=== PATIENT | female | born 2000 | race Caucasian/White ===

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

== ENCOUNTER 2018-12-04 09:28 | Emergency (ER) | payer MEDICAID ==
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
[2018-12-04 10:25] VITALS: PULSE 80; O2SAT 95
[2018-12-04 10:45] LABS: Appearance SLIGHTLY CLOUDY (CLEAR); Bacteria RARE /HPF (NEGATIVE); Bilirubin NEGATIVE (NEGATIVE); Blood LARGE Ery/ul (0-5); Epithelial Cells RARE /HPF (FEW); Glucose NEGATIVE (NEGATIVE); Ketones NEGATIVE (NEGATIVE); Leukocyte Esterase NEGATIVE (NEGATIVE); Mucus SLIGHT /HPF (NEGATIVE); Nitrite NEGATIVE (NEGATIVE); Protein,Urine Dip NEGATIVE (Negative); Specific Gravity 1.018 (1.005-1.025); Urobilinogen NEGATIVE mg/dL (0-1)
[2018-12-04 10:46] LABS: Amphetamine,Urine NEGATIVE (NEGATIVE); Barbiturate,Urine NEGATIVE (NEGATIVE); Benzodiazepine,Urine NEGATIVE (NEGATIVE); Cocaine,Urine NEGATIVE (NEGATIVE); Methadone,Urine NEGATIVE (NEGATIVE); Opiate,Urine NEGATIVE (NEGATIVE); PCP,Urine NEGATIVE (NEGATIVE); THC,Urine POSITIVE (NEGATIVE)
[2018-12-04 11:05] LABS: RBC >101 /HPF (0-2)
[2018-12-04 11:06] LABS: BASOPHIL % 0.3 % (0.0-0.4); Basophil (Absolute #) 0.03 (0-0.4); Eosinophil % 3.4 % (0.00-5.0); Eosinophil (Absolute #) 0.41 (0-0.5); Granulocyte Absolute (ANC) 8.64 (1.4-6.9); Granulocytes % 72.1 % (36.0-66.0); Hematocrit 39.9 % (35-47); Hemoglobin 13.4 gm/dl (12.0-16.0); Lymphocyte (Absolute #) 2.05 (1.0-4.6); Lymphocytes % 17.1 % (24.0-44.0); Mean Cell Volume 84.7 fl (78-100); Mean Corpuscular Hemoglobin 28.5 pg (26-32); Mean Corpuscular Hgb Concent. 33.6 g/dl (32-36); Mean Platelet Volume 10.5 fl (6-9.5); Monocyte (Absolute #) 0.85 (0.0-1.3); Monocytes % 7.1 % (0.0-12.0); Platelet Count 269 K/mm3 (150-450); Red Blood Count 4.71 M/mm3 (4.1-5.4); Red Cell Distribution Width 14.8 % (11.5-14.0)
[2018-12-04 11:17] LABS: ALBUMIN 4.3 g/dL (3.5-5.0); ALKALINE PHOSPHATASE 56 U/L (38-126); ANION GAP 15.6 MEQ/L (5-15); BLOOD UREA NITROGEN 7 mg/dL (7-17); CHLORIDE 107 mmol/L (98-107); Carbon Dioxide 23 mmol/L (22-30); Creatinine 1 0.48 mg/dL (0.52-1.04); Glucose 81 mg/dL (74-106); LIPASE 28 U/L (23-300); SGOT/AST 18 U/L (14-36); SGPT/ALT 16 U/L (0-35); SODIUM 141 mmol/L (137-145); Total Protein 7.5 g/dL (6.3-8.2)
[2018-12-04] MEDS ORDERED: Zofran 4 MG/2 ML VIAL IV ONE (11:25)
[2018-12-04] MEDS ORDERED: MORPHINE SULFATE 2 MG INJ IV ONE (11:25)
[2018-12-04] MEDS ORDERED: MORPHINE SULFATE 2 MG INJ ONE (11:33)
[2018-12-04] MEDS ORDERED: Zofran 4 MG/2 ML VIAL ONE (11:33)
[2018-12-04 11:53] VITALS: BP 125/74
== END 2018-12-04 12:04 | disposition home or self-care (01) ==
LOC: ED 09:28
DX: O20.9 Hemorrhage in early pregnancy, unspecified (principal); Z3A.22 22 weeks gestation of pregnancy
CPT/HCPCS: 36000; 36415; 80053; 80307; 81001; 83690; 84702; 85025; 96374; 96375; 99284; J2270; J2405

== ENCOUNTER 2019-11-23 00:57 | Emergency (ER) | payer MEDICAID ==
--- NOTE | 2019-11-23 01:23 | ERPHSYRPT ---
- History of Present Illness Time Seen by Provider: 11/23/19 01:18 Historian: patient Exam Limitations: no limitations Physician History: This is a 19-year-old white female who presents with persistent vaginal bleeding (4-5 pads a day for 6 days) since her surgery on October 27 at [facility] by Dr. Weathers. She was seen postoperatively by Dr. Jasiel cote 2 weeks after her procedure and there was no vaginal bleeding at that time. She was seen at [facility] in [facility] approximately 1 week ago with similar issues. They could not get a hold of the electrical high tension tester and patient was told to follow-up with the electrical high tension tester who operated on her. The procedure performed was described as "opening up her fallopian tubes". They were unable to be opened per her report. The surgery was performed laparoscopically and a catheter went through the cervix. Patient states she had a CAT scan performed which showed some fluid down in the pelvis. Patient complains of some suprapubic discomfort and lower back pain bilaterally. She states at times she feels dizzy. Activities at Onset: none Quality: aching Abdominal Pain Onset Location: suprapubic Pain Radiation: no radiation, back Severity of Pain-Max: moderate Severity of Pain-Current: moderate Modifying Factors: Improves With: nothing Previous symptoms: same symptoms as today, recently seen Allergies/Adverse Reactions: shellfish derived Allergy (Severe, Verified 11/23/19 01:28) Vomiting PT STATES SHE VOMITS BLOOD sertraline [From Zoloft] Allergy (Intermediate, Verified 11/23/19 01:28) SUICIDAL IDEATIONS amoxicillin Allergy (Unknown, Verified 11/23/19 01:28) Blisters Penicillins Allergy (Unknown, Verified 11/23/19 01:28) Blisters Home Medications: Doxycycline Hyclate 100 mg [Vibramycin 100 MG] 100 mg PO BID 11/23/19 [History] Lurasidone HCl [Latuda] 20 mg PO DAILY 11/23/19 [History] Hx Tetanus, Diphtheria Vaccination/Date Given: Yes Hx Influenza Vaccination/Date Given: No Hx Pneumococcal Vaccination/Date Given: No Travel Risk - International Travel Have you traveled outside of the country in past 3 weeks: No (N) If Yes, where;: N - Coronavirus Screening Are you exhibiting any of the following symptoms?: No Close contact with a COVID-19 positive Pt in past 14-21 Days: No - Review of Systems Constitutional: No Symptoms Eyes: No Symptoms Ears, Nose, & Throat: No Symptoms Respiratory: No Symptoms Cardiac: No Symptoms Abdominal/Gastrointestinal: Abdominal Pain Genitourinary Symptoms: Vaginal Bleeding Musculoskeletal: No Symptoms Skin: No Symptoms Neurological: No Symptoms Psychological: No Symptoms Endocrine: No Symptoms Hematologic/Lymphatic: No Symptoms Immunological/Allergic: No Symptoms All Other Systems: Reviewed and Negative - Past Medical History Pertinent Past Medical History: Yes Neurological History: No Pertinent History ENT History: No Pertinent History Cardiac History: No Pertinent History Respiratory History: Asthma Endocrine Medical History: No Pertinent History Musculoskeletal History: No Pertinent History GI Medical History: Other History: No Pertinent History Psycho-Social History: Depression Female Reproductive Disorders: No Pertinent History Other Medical History: gastroparesis - Past Surgical History Past Surgical History: No Neuro Surgical History: No Pertinent History Cardiac: No Pertinent History Respiratory: No Pertinent History Gastrointestinal: No Pertinent History Genitourinary: No Pertinent History Musculoskeletal: No Pertinent History Female Surgical History: No Pertinent History - Social History Smoking Status: Current every day smoker How long have you smoked: 6 months Exposure to second hand smoke: Yes Drug Use: none Patient Lives Alone: No - Nursing Vital Signs Nursing Vital Signs: Initial Vital Signs Temperature 98.5 F 11/23/19 01:16 Pulse Rate 113 H 11/23/19 01:16 Respiratory Rate 18 11/23/19 01:16 Blood Pressure 137/80 11/23/19 01:16 O2 Sat by Pulse Oximetry 97 11/23/19 01:16 Pain Scale Pain Intensity 7 - Physical Exam General Appearance: no apparent distress, alert, anxiety Eye Exam: PERRL/EOMI, eyes nml inspection Ears, Nose, Throat Exam: normal ENT inspection, moist mucous membranes Neck Exam: normal inspection, non-tender, supple, full range of motion Respiratory Exam: normal breath sounds, lungs clear, airway intact, No chest tenderness, No respiratory distress Cardiovascular Exam: tachycardia Gastrointestinal/Abdomen Exam: soft, normal bowel sounds, tenderness (Mild suprapubic tenderness) Rectal Exam: not done Back Exam: normal inspection, normal range of motion, No CVA tenderness, No vertebral tenderness Extremity Exam: normal inspection, normal range of motion, pelvis stable Neurologic Exam: alert, oriented x 3, cooperative, conveyor line bakery worker II-XII nml as tested, normal mood/affect, nml cerebellar function, nml station & gait, sensation nml Skin Exam: normal color, warm, dry Lymphatic Exam: No adenopathy SpO2 Interpretation: normal O2 Delivery: Room Air - Course Nursing assessment & vital signs reviewed: Yes Ordered Tests: Active Orders 24 hr Category Date Time Status IV Insertion STAT Care 11/23/19 01:25 Active ABDOMEN AND PELVIS W/0 CONTRAS [CT] Stat Exams 11/23/19 02:16 Taken CBC W DIFF Stat Lab 11/23/19 01:48 Completed CMP Stat Lab 11/23/19 01:48 Completed CULTURE,URINE Stat Lab 11/23/19 01:48 Received HCG QUALITATIVE,SERUM Stat Lab 11/23/19 01:48 Completed UA W/RFX UR CULTURE Stat Lab 11/23/19 01:48 Completed Medication Summary Discontinued Medications Generic Name Dose Route Start Last Admin Trade Name Freq PRN Reason Stop Dose Admin Sodium Chloride 1,000 mls @ 999 mls/hr 11/23/19 01:25 11/23/19 01:59 Sodium Chloride 0.9% 1000 Ml IV 11/23/19 02:25 999 mls/hr .Q1H1M STA Administration Sodium Chloride Confirm 11/23/19 01:54 Sodium Chloride 0.9% 1000 Ml Administered 11/23/19 01:55 Dose 1,000 mls @ ud .ROUTE .STK-MED ONE Morphine Sulfate 4 mg 11/23/19 01:52 11/23/19 02:00 Morphine Sulfate 4 Mg Inj IV 11/23/19 01:53 4 mg STAT ONE Administration Morphine Sulfate Confirm 11/23/19 01:54 Morphine Sulfate 4 Mg Inj Administered 11/23/19 01:55 Dose 4 mg .ROUTE .STK-MED ONE Ondansetron HCl 4 mg 11/23/19 01:25 11/23/19 02:00 Zofran 4 Mg/2 Ml Vial IV 11/23/19 01:26 4 mg STAT ONE Administration Ondansetron HCl Confirm 11/23/19 01:54 Zofran 4 Mg/2 Ml Vial Administered 11/23/19 01:55 Dose 4 mg .ROUTE .STK-MED ONE Lab/Rad Data: Laboratory Result Diagrams 11/23/19 01:48 11/23/19 01:48 Laboratory Results 11/23/19 11/23/19 11/23/19 Range/Units 01:48 01:48 01:48 WBC (4.0-10.5) K/mm3 RBC (4.1-5.4) M/mm3 Hgb (12.0-16.0) gm/dl Hct (35-47) % MCV (78-100) fl MCH (26-32) pg MCHC (32-36) g/dl RDW (11.5-14.0) % Plt Count (150-450) K/mm3 MPV (7.5-11.0) fl Gran % (36.0-66.0) % Eos # (Auto) (0-0.5) Absolute Lymphs (auto) (1.0-4.6) Absolute Monos (auto) (0.0-1.3) Lymphocytes % (24.0-44.0) % Monocytes % (0.0-12.0) % Eosinophils % (0.00-5.0) % Basophils % (0.0-0.4) % Absolute Granulocytes (1.4-6.9) Basophils # (0-0.4) Sodium 136 L (137-145) mmol/L Potassium 4.2 (3.5-5.1) mmol/L Chloride 103 (98-107) mmol/L Carbon Dioxide 24 (22-30) mmol/L Anion Gap 14.1 (5-15) MEQ/L BUN 9 (7-17) mg/dL Creatinine 0.60 (0.52-1.04) mg/dL Estimated GFR > 60.0 ML/MIN Glucose 102 (74-106) mg/dL Calcium 10.2 (8.4-10.2) mg/dL Total Bilirubin 0.50 (0.2-1.3) mg/dL AST 19 (14-36) U/L ALT 11 (0-35) U/L Alkaline Phosphatase 65 (38-126) U/L Serum Total Protein 8.4 H (6.3-8.2) g/dL Albumin 5.2 H (3.5-5.0) g/dL Serum , Qual NEGATIVE (Negative) Urine Color RED (YELLOW) Urine Appearance SLIGHTLY CLOUDY (CLEAR) Urine pH 7.0 (5-6) Ur Specific [place] 1.006 (1.005-1.025) Urine Protein 100 (Negative) Urine Ketones NEGATIVE (NEGATIVE) Urine Blood LARGE (0-5) John/ul Urine Nitrite NEGATIVE (NEGATIVE) Urine Bilirubin NEGATIVE (NEGATIVE) Urine Urobilinogen NEGATIVE (0-1) mg/dL Ur Leukocyte Esterase TRACE (NEGATIVE) Urine WBC (Auto) 0-2 (0-5) /HPF Urine RBC (Auto) >101 (0-2) /HPF U Epithel Cells (Auto) NONE (FEW) /HPF Urine Bacteria (Auto) NONE SEEN (NEGATIVE) /HPF Urine Culture Reflexed YES (NO) Urine Glucose NEGATIVE (NEGATIVE) mg/dL 11/23/19 Range/Units 01:48 WBC 10.4 (4.0-10.5) K/mm3 RBC 4.94 (4.1-5.4) M/mm3 Hgb 14.1 (12.0-16.0) gm/dl Hct 42.8 (35-47) % MCV 86.6 (78-100) fl MCH 28.5 (26-32) pg MCHC 32.9 (32-36) g/dl RDW 13.2 (11.5-14.0) % Plt Count 282 (150-450) K/mm3 MPV 9.9 (7.5-11.0) fl Gran % 73.1 H (36.0-66.0) % Eos # (Auto) 0.04 (0-0.5) Absolute Lymphs (auto) 2.25 (1.0-4.6) Absolute Monos (auto) 0.49 (0.0-1.3) Lymphocytes % 21.6 L (24.0-44.0) % Monocytes % 4.7 (0.0-12.0) % Eosinophils % 0.4 (0.00-5.0) % Basophils % 0.2 (0.0-0.4) % Absolute Granulocytes 7.64 H (1.4-6.9) Basophils # 0.02 (0-0.4) Sodium (137-145) mmol/L Potassium (3.5-5.1) mmol/L Chloride (98-107) mmol/L Carbon Dioxide (22-30) mmol/L Anion Gap (5-15) MEQ/L BUN (7-17) mg/dL Creatinine (0.52-1.04) mg/dL Estimated GFR ML/MIN Glucose (74-106) mg/dL Calcium (8.4-10.2) mg/dL Total Bilirubin (0.2-1.3) mg/dL AST (14-36) U/L ALT (0-35) U/L Alkaline Phosphatase (38-126) U/L Serum Total Protein (6.3-8.2) g/dL Albumin (3.5-5.0) g/dL Serum , Qual (Negative) Urine Color (YELLOW) Urine Appearance (CLEAR) Urine pH (5-6) Ur Specific [place] (1.005-1.025) Urine Protein (Negative) Urine Ketones (NEGATIVE) Urine Blood (0-5) John/ul Urine Nitrite (NEGATIVE) Urine Bilirubin (NEGATIVE) Urine Urobilinogen (0-1) mg/dL Ur Leukocyte Esterase (NEGATIVE) Urine WBC (Auto) (0-5) /HPF Urine RBC (Auto) (0-2) /HPF U Epithel Cells (Auto) (FEW) /HPF Urine Bacteria (Auto) (NEGATIVE) /HPF Urine Culture Reflexed (NO) Urine Glucose (NEGATIVE) mg/dL - Progress Progress: improved Progress Note: 11/23/19 03:05 CAT scan of the abdomen and pelvis reveals trace free fluid in the dependent pelvis cannot exclude ovarian cyst rupture. No other acute CAT scan pathology 11/23/19 03:05 Medical decision making: This patient has had vaginal bleeding 4-5 times a day for the last 5 to 6 days. She is postprocedural. She has been seen at [facility] emergency department as well as our emergency department. Her hemoglobin levels are essentially the same 1 week apart. She is hemodynamically stable. Her CAT scans have not changed in the last week showing only a trace amount of dependent pelvic fluid. We will make arrangements for this patient to be seen by electrical high tension tester Dr. Farias on an outpatient basis. Have given the patient's phone number to the beam house inspector Arely. We will also provide the patient with Dr. Worrell phone number. Counseled pt/family regarding: lab results, diagnosis, need for follow-up, rad results - Departure Departure Disposition: Home Clinical Impression: Vaginal bleeding Condition: Stable Critical Care Time: No Referrals: DONALD LLOYD MD [ACTIVE STAFF] - Additional Instructions: Drink plenty of fluids. If you do not hear from Dr. Farias's office by 670 this morning, you are to call [phone] extension [phone]. We will discuss with you and manage your vaginal bleeding issues and pain control issues. Use Tylenol for pain control until your evaluation by gynecology.
[2019-11-23] MEDS ORDERED: Sodium Chloride 0.9% 1000 ML 1,000 ML IV STA (01:25)
[2019-11-23] MEDS ORDERED: Zofran 4 MG/2 ML VIAL IV ONE (01:25)
[2019-11-23 01:52] LABS: Absolute Neutrophil Ct (ANC) 7.64 (1.4-6.9); BASOPHIL % 0.2 % (0.0-0.4); Basophil (Absolute #) 0.02 (0-0.4); Eosinophil % 0.4 % (0.00-5.0); Eosinophil (Absolute #) 0.04 (0-0.5); Hematocrit 42.8 % (35-47); Hemoglobin 14.1 gm/dl (12.0-16.0); Lymphocyte (Absolute #) 2.25 (1.0-4.6); Lymphocytes % 21.6 % (24.0-44.0); Mean Cell Volume 86.6 fl (78-100); Mean Corpuscular Hemoglobin 28.5 pg (26-32); Mean Corpuscular Hgb Concent. 32.9 g/dl (32-36); Mean Platelet Volume 9.9 fl (7.5-11.0); Monocyte (Absolute #) 0.49 (0.0-1.3); Monocytes % 4.7 % (0.0-12.0); Neutrophil % 73.1 % (36.0-66.0); Platelet Count 282 K/mm3 (150-450); Red Blood Count 4.94 M/mm3 (4.1-5.4); Red Cell Distribution Width 13.2 % (11.5-14.0); White Blood Count 10.4 K/mm3 (4.0-10.5)
[2019-11-23] MEDS ORDERED: MORPHINE SULFATE 4 MG INJ IV ONE (01:52)
[2019-11-23] MEDS ORDERED: Sodium Chloride 0.9% 1000 ML 1,000 ML ONE (01:54)
[2019-11-23] MEDS ORDERED: Zofran 4 MG/2 ML VIAL ONE (01:54)
[2019-11-23] MEDS ORDERED: MORPHINE SULFATE 4 MG INJ ONE (01:54)
[2019-11-23 02:02] LABS: ALBUMIN 5.2 g/dL (3.5-5.0); ALKALINE PHOSPHATASE 65 U/L (38-126); ANION GAP 14.1 MEQ/L (5-15); BLOOD UREA NITROGEN 9 mg/dL (7-17); CHLORIDE 103 mmol/L (98-107); Calcium 10.2 mg/dL (8.4-10.2); Carbon Dioxide 24 mmol/L (22-30); EST GLOMERULAR FILTRATION RATE > 60.0 ML/MIN; Glucose 102 mg/dL (74-106); Potassium 4.2 mmol/L (3.5-5.1); SGOT/AST 19 U/L (14-36); SGPT/ALT 11 U/L (0-35); SODIUM 136 mmol/L (137-145); Total Protein 8.4 g/dL (6.3-8.2)
[2019-11-23 02:03] LABS: Appearance SLIGHTLY CLOUDY (CLEAR); Bilirubin NEGATIVE (NEGATIVE); Blood LARGE Ery/ul (0-5); Glucose NEGATIVE (NEGATIVE); Ketones NEGATIVE (NEGATIVE); Leukocyte Esterase TRACE (NEGATIVE); Nitrite NEGATIVE (NEGATIVE); Protein,Urine Dip 100 (Negative); Specific Gravity 1.006 (1.005-1.025); Urobilinogen NEGATIVE mg/dL (0-1); WBC 0-2 /HPF (0-5)
[2019-11-23 02:04] LABS: Bacteria NONE SEEN /HPF (NEGATIVE); RBC >101 /HPF (0-2)
[2019-11-23 03:17] VITALS: BP 123/80; PULSE 94; O2SAT 100
--- NOTE | 2019-11-23 08:45 | XRAY ---
Indication: Vaginal bleeding. Status post gynecologic surgery October 28, 2019. Multiple contiguous axial images obtained through the abdomen and pelvis without contrast as ordered. Comparison: August 13, 2017. Lung bases are clear. Heart is not enlarged. Noncontrasted stomach and bowel loops appear nonobstructed. Normal appendix. Mild fecal debris predominantly in the ascending and transverse colon. Small cul-de-sac fluid. No free air. Remaining liver, gallbladder, pancreas, spleen, adrenal glands, kidneys, ureters, bladder, uterus, and aorta are unremarkable for noncontrast exam. Osseous structures intact. No ventral or inguinal hernias. Impression: 1. Cul-de-sac fluid presumed physiologic from rupture/leaking cyst. 2. Mild fecal stasis. 3. Remaining CT abdomen/pelvis without contrast exam is negative. Comment: Preliminary interpretation was made by [facility]. No critical discrepancy.
== END 2019-11-23 03:27 | disposition home or self-care (01) ==
LOC: ED 00:57
DX: N99.820 Postprocedural hemorrhage of a genitourinary system organ or structure following a genitourinary system procedure (principal); N93.9 Abnormal uterine and vaginal bleeding, unspecified
CPT/HCPCS: 36000; 36415; 74176; 80053; 81001; 81025; 85025; 87086; 96360; 96374; 96375; 99284; J2270; J2405

== ENCOUNTER 2019-11-26 17:19 | Emergency (ER) | payer MEDICAID ==
[2019-11-26 17:58] VITALS: BP 103/82; PULSE 98; O2SAT 99
[2019-11-26] MEDS ORDERED: Trandate 100 MG PO STA (18:07)
--- NOTE | 2019-11-26 18:08 | ERPHSYRPT ---
- History of Present Illness Time Seen by Provider: 11/26/19 17:50 Source: patient Exam Limitations: no limitations Patient Subjective Stated Complaint: pt here for vaginal bleeding, she was seen by Din[facility] and was given meds, but unable to fill them dhiraj to insurance not paying Triage Nursing Assessment: pt alert, walked in, face mask on, resp easy, abd soft, she states she is going thorugh 1-2 pads per hour, and is light headed at times Physician History: 19 years old female with a history of PID presented in the ER with chief complaint of excessive vaginal bleeding for the last 11 days. Patient has history of irregular cycles and has recently procedure done at [facility] and was referred to [facility] here Dr. Farias who has seen patient few days ago and has obtained labs which were done yesterday which are grossly unremarkable. Patient reports she continues to have bright to dark red blood and few clots for the last 11 days. She was prescribed TXA but could not get it from the pharmacy as Dr. Farias is not on the list for Medicaid patients. Patient denies any abdominal pain but has minimal discomfort at times in the pelvic area. Denies any nausea vomiting. Denies any dizziness or lightheade dness. No chest pain palpitations or shortness of breath reported. Timing/Duration: day(s) (11), gradual onset, worse Activites at Onset: rest Severity of Pain-Max: moderate Severity of Pain-Current: mild Prior abdominal problems: PID Sexual intercourse history: non-contributory Modifying Factors: Improves With: nothing Allergies/Adverse Reactions: shellfish derived Allergy (Severe, Verified 11/26/19 17:58) Vomiting PT STATES SHE VOMITS BLOOD sertraline [From Zoloft] Allergy (Intermediate, Verified 11/26/19 17:58) SUICIDAL IDEATIONS amoxicillin Allergy (Unknown, Verified 11/26/19 17:58) Blisters Penicillins Allergy (Unknown, Verified 11/26/19 17:58) Blisters Home Medications: Doxycycline Hyclate 100 mg [Vibramycin 100 MG] 100 mg PO BID 11/23/19 [History] Lurasidone HCl [Latuda] 20 mg PO DAILY 11/23/19 [History] Hx Tetanus, Diphtheria Vaccination/Date Given: Yes Hx Influenza Vaccination/Date Given: No Hx Pneumococcal Vaccination/Date Given: No Travel Risk - International Travel Have you traveled outside of the country in past 3 weeks: No - Coronavirus Screening Are you exhibiting any of the following symptoms?: No Close contact with a COVID-19 positive Pt in past 14-21 Days: No - Review of Systems Constitutional: No Symptoms Eyes: No Symptoms Ears, Nose, & Throat: No Symptoms Respiratory: No Symptoms Cardiac: No Symptoms Abdominal/Gastrointestinal: No Symptoms Genitourinary Symptoms: Vaginal Bleeding Musculoskeletal: No Symptoms Skin: No Symptoms Neurological: No Symptoms Psychological: No Symptoms Endocrine: No Symptoms Hematologic/Lymphatic: No Symptoms Immunological/Allergic: No Symptoms - Past Medical History Pertinent Past Medical History: Yes Neurological History: No Pertinent History ENT History: No Pertinent History Cardiac History: No Pertinent History Respiratory History: Asthma Endocrine Medical History: No Pertinent History Musculoskeletal History: No Pertinent History GI Medical History: Other History: No Pertinent History Psycho-Social History: Depression Female Reproductive Disorders: No Pertinent History Other Medical History: gastroparesis - Past Surgical History Past Surgical History: No Neuro Surgical History: No Pertinent History Cardiac: No Pertinent History Respiratory: No Pertinent History Gastrointestinal: No Pertinent History Genitourinary: No Pertinent History Musculoskeletal: No Pertinent History Female Surgical History: No Pertinent History Other Surgical History: laprscopy to clean out fallopian tubes - Social History Smoking Status: Current every day smoker How long have you smoked: 6 months Exposure to second hand smoke: Yes Drug Use: none Patient Lives Alone: No - Female History Hx Last Menstrual Period: now Hx Now: No - Nursing Vital Signs Nursing Vital Signs: Initial Vital Signs Temperature 97.3 F 11/26/19 17:51 Pulse Rate 98 H 11/26/19 17:51 Respiratory Rate 16 11/26/19 17:51 Blood Pressure 103/82 11/26/19 17:51 O2 Sat by Pulse Oximetry 99 11/26/19 17:51 Pain Scale Pain Intensity 5 - Physical Exam General Appearance: no apparent distress, alert Eye Exam: eyes nml inspection Ears, Nose, Throat Exam: normal ENT inspection, pharynx normal Neck Exam: normal inspection, supple, full range of motion Respiratory Exam: normal breath sounds, lungs clear Cardiovascular Exam: regular rate/rhythm, normal heart sounds Gastrointestinal/Abdomen Exam: soft, normal bowel sounds, No tenderness Pelvic Exam: not done Back Exam: normal inspection, normal range of motion Extremity Exam: normal inspection, normal range of motion Neurologic Exam: alert, oriented x 3, cooperative Skin Exam: normal color, warm SpO2 Interpretation: normal SpO2: 99 O2 Delivery: Room Air - Course Nursing assessment & vital signs reviewed: Yes - Progress Progress: unchanged Air Movement: good Progress Note: 11/26/19 18:19 19 years old is evaluated for abnormal vaginal bleeding. She has of work-up done yesterday with stable H&H. Negative test. Discussed with Dr. Farias, recommended prescription of tranexamic acid 650 mg 2 tablets 3 times a day for 5 days and outpatient follow-up. Patient has a stable vital. No signs of distress or hypotension. At this point do not think patient needs work-up again and is stable for discharge with outpatient follow-up. Blood Culture(s) Obtained: No Antibiotics given: No Discussed with Dr.: Other () Counseled pt/family regarding: diagnosis, need for follow-up - Departure Departure Disposition: Home Clinical Impression: Abnormal uterine bleeding Condition: Stable Critical Care Time: No Referrals: DOCTOR,NO FAMILY [Primary Care Provider] - JONATHAN FARIAS DO [ACTIVE STAFF] - Follow Up with PCP/3 days Additional Instructions: Drink plenty of fluids. Take tranexamic acid 650 mg 2 tablets 3 times a day for 5 days and follow-up with [facility] for reevaluation. Return to ER for worsening bleeding, feeling dizzy lightheaded, chest pain palpitations or shortness of br eath. Prescriptions: Tranexamic Acid [Lysteda] 1,300 mg PO TID 5 Days #30 tablet
[2019-11-26] MEDS ORDERED: TRANEXAMIC ACID 1000 MG/10 ML ONE (18:42)
== END 2019-11-26 19:14 | disposition home or self-care (01) ==
LOC: ED 17:19
DX: N93.8 Other specified abnormal uterine and vaginal bleeding (principal); Z98.890 Other specified postprocedural states
CPT/HCPCS: 99283

== ENCOUNTER 2020-03-04 22:22 | Emergency (ER) | payer MEDICAID ==
[2020-03-04 22:31] VITALS: O2SAT 100
--- NOTE | 2020-03-04 22:48 | ERPHSYRPT ---
- History of Present Illness Time Seen by Provider: 03/04/20 22:35 Source: patient Exam Limitations: no limitations Physician History: The patient is a 19-year-old female who presents with a chief complaint of a and chest pain. Onset reportedly was 2 weeks ago. She reportedly had a cough and some shortness of breath at that time as well as chest pain and was tested for COVID-19 and was negative. Since that time she is endorsed having intermittent fevers general malaise and fatigue. She has nausea, vomiting, changes in her taste and sense of smell, diarrhea, history of PE or DVT, estrogen use, recent surgery or immobilization. She decided to come to the emergency department tonight when her "fever" was noted to be 101 Fahrenheit for which she took Tylenol an hour prior to arrival. Timing/Duration: week(s) (2) Associated Symptoms: shortness of breath, cough, chills, chest pain, fever, No nausea, No vomiting Allergies/Adverse Reactions: shellfish derived Allergy (Severe, Verified 03/04/20 22:33) Vomiting PT STATES SHE VOMITS BLOOD sertraline [From Zoloft] Allergy (Intermediate, Verified 03/04/20 22:33) Rash SUICIDAL IDEATIONS amoxicillin Allergy (Unknown, Verified 03/04/20 22:33) Blisters Penicillins Allergy (Unknown, Verified 03/04/20 22:33) Blisters Home Medications: Lurasidone HCl [Latuda] 20 mg PO DAILY 11/23/19 [History] Albuterol 17 gm IH Q4-6HPRN PRN 03/04/20 [History] Hx Tetanus, Diphtheria Vaccination/Date Given: Yes Hx Influenza Vaccination/Date Given: No Hx Pneumococcal Vaccination/Date Given: No - Review of Systems Constitutional: Fever, Chills, Fatigue Eyes: No Symptoms Ears, Nose, & Throat: No Symptoms Respiratory: Cough, Dyspnea, No Stridor, No Wheezing Cardiac: Chest Pain, Orthopnea, No Edema, No Palpitations, No Syncope Abdominal/Gastrointestinal: No Abdominal Pain, No Nausea, No Vomiting Musculoskeletal: No Symptoms, Other (No asymmetric lower extremity calf tenderness or erythema to suggest DVT) Skin: No Symptoms Neurological: No Symptoms Psychological: No Symptoms All Other Systems: Reviewed and Negative - Past Medical History Pertinent Past Medical History: Yes Neurological History: No Pertinent History ENT History: No Pertinent History Cardiac History: No Pertinent History Respiratory History: Asthma Endocrine Medical History: No Pertinent History Musculoskeletal History: No Pertinent History GI Medical History: Other History: No Pertinent History Psycho-Social History: Depression Female Reproductive Disorders: No Pertinent History Other Medical History: gastroparesis - Past Surgical History Past Surgical History: No Neuro Surgical History: No Pertinent History Cardiac: No Pertinent History Respiratory: No Pertinent History Gastrointestinal: No Pertinent History Genitourinary: No Pertinent History Musculoskeletal: No Pertinent History Female Surgical History: No Pertinent History Other Surgical History: laprscopy to clean out fallopian tubes - Social History Smoking Status: Current every day smoker How long have you smoked: 6 months Exposure to second hand smoke: Yes Drug Use: marijuana Patient Lives Alone: No - Nursing Vital Signs Nursing Vital Signs: Initial Vital Signs Temperature 99.5 F 03/04/20 22:29 Pulse Rate 86 03/04/20 22:29 Respiratory Rate 18 03/04/20 22:29 Blood Pressure 137/85 03/04/20 22:29 O2 Sat by Pulse Oximetry 100 03/04/20 22:29 Pain Scale Pain Intensity 5 - Physical Exam General Appearance: no apparent distress, alert Neck Exam: normal inspection Respiratory Exam: normal breath sounds, lungs clear, airway intact, No chest tenderness, No respiratory distress Cardiovascular Exam: regular rate/rhythm, normal heart sounds, normal peripheral pulses, capillary refill <2 sec, No murmur, No friction rub, No gallop, No tachycardia, No edema Gastrointestinal/Abdomen Exam: soft Pelvic Exam: not done Rectal Exam: deferred Back Exam: normal inspection Extremity Exam: normal inspection Neurologic Exam: alert, oriented x 3, cooperative Skin Exam: normal color, warm, dry, rash, No petechiae, No jaundice, No cyanosis, No jaundice SpO2 Interpretation: normal SpO2: 100 O2 Delivery: Room Air - Course Nursing assessment & vital signs reviewed: Yes EKG Interpreted by Me: RATE, Sinus Tach, NORMAL AXIS, NORMAL INTERVALS, NORMAL QRS, NORMAL ST-T, Non-specific ST Changes - Radiology Exams Chest X-ray Interpretation: Interpreted by me, Reviewed by me, Negative (No acute cardiopulmonary process) Ordered Tests: Active Orders 24 hr Category Date Time Status EKG-ER Only STAT Care 03/04/20 22:43 Completed CHEST 2 VIEWS (PA AND LAT) Stat Exams 03/04/20 22:42 Taken - Progress Progress: unchanged Progress Note: 03/04/20 22:50 Nontoxic appearance. Afebrile the patient appears to be well-hydrated. I currently have a low suspicion for PE, aortic dissection, ACS or bacteremia at this time. The patient reportedly is already tested negative for COVID-19. Respiratory distress and her lung sounds are clear bilateral. I will obtain a chest x-ray to eval for evidence of pneumonia, pneumothorax or pleural effusion. EKG was also obtained showing no evidence of STEMI and otherwise with no obvious myocardial ischemia or injury pattern. Update for chest x-ray looks rel atively benign she will be discharged home to take Tylenol as well as ibuprofen as needed for symptomatic relief and she can follow-up with her primary care provider for further evaluation. Counseled pt/family regarding: diagnosis, need for follow-up, rad results - Departure Departure Disposition: Home Clinical Impression: Acute nonspecific chest pain with low risk of coronary artery disease, Fever, Tobacco abuse, Vaping nicotine dependence, non-tobacco product Condition: Stable Critical Care Time: No Referrals: BEBE CALVIN [Primary Care Provider] - Instructions: Chest Pain (DC), Fever, Adult (DC) Additional Instructions: Please take Tylenol and/or ibuprofen for any ongoing fevers aches or pains. You can purchase these medications [id number]. Please take these medications as instructed on the medication bottles.
[2020-03-04 23:20] VITALS: BP 132/81; PULSE 90
--- NOTE | 2020-03-05 08:48 | XRAY ---
Indication: Chest pain and short of breath. Comparison: August 13, 2017. PA/lateral chest again demonstrates normal heart, lungs, and bony thorax.
== END 2020-03-04 23:24 | disposition home or self-care (01) ==
LOC: ED 22:22
DX: R07.9 Chest pain, unspecified (principal); R50.9 Fever, unspecified; U07.0 Vaping-related disorder; F17.290 Nicotine dependence, other tobacco product, uncomplicated
CPT/HCPCS: 71046; 93005; 99284

== ENCOUNTER 2020-03-27 17:38 | Emergency (ER) | payer MEDICAID ==
--- NOTE | 2020-03-27 17:42 | ERPHSYRPT ---
- History of Present Illness Source: patient Exam Limitations: no limitations Timing/Duration: day(s) (A few days) Severity: mild Associated Symptoms: shortness of breath, cough, chest pain, No nausea, No vomiting, No abdominal pain, No chills Hx Tetanus, Diphtheria Vaccination/Date Given: Yes Hx Influenza Vaccination/Date Given: No Hx Pneumococcal Vaccination/Date Given: No <SONYA IBARRA - Last Filed: 03/27/20 18:58> <BELA RÍOS - Last Filed: 03/27/20 19:57> - History of Present Illness Time Seen by Provider: 03/27/20 17:42 Physician History: This is a 19-year-old white female who was diagnosed with COVID-19 positive test on 03/13/2020. Since that time, the patient has been on a Z-Maximilian. Completed her Z-Maximilian yesterday. She has been on steroids. Despite the steroids her symptoms have not significantly improved. Patient specifically stated that she has bilat eral lower lung opacities on a chest x-ray. Patient states that she continues to have shortness of breath and feels as though she is gasping for air. She also has pain in her ribs on the backside and chest with deep inspiration. Patient states that she is not had any fevers. She has no nausea vomiting or diarrhea. She continues to have a mild cough. (SONYA IBARRA) Allergies/Adverse Reactions: shellfish derived Allergy (Severe, Verified 03/27/20 17:45) Vomiting PT STATES SHE VOMITS BLOOD sertraline [From Zoloft] Allergy (Intermediate, Verified 03/27/20 17:45) Rash SUICIDAL IDEATIONS amoxicillin Allergy (Unknown, Verified 03/27/20 17:45) Blisters Penicillins Allergy (Unknown, Verified 03/27/20 17:45) Blisters Home Medications: Lurasidone HCl [Latuda] 20 mg PO DAILY PRN 11/23/19 [History] Albuterol 17 gm IH Q4-6HPRN PRN 03/04/20 [History] Travel Risk - International Travel Have you traveled outside of the country in past 3 weeks: No - Coronavirus Screening Are you exhibiting any of the following symptoms?: Yes Symptoms: Cough: New Onset, Shortness of Breath Close contact with a COVID-19 positive Pt in past 14-21 Days: Yes <MARLIN IBARRAMUNDO Amada - Last Filed: 03/27/20 18:58> - Review of Systems Constitutional: No Symptoms Eyes: No Symptoms Ears, Nose, & Throat: No Symptoms Respiratory: Cough, Dyspnea Cardiac: Chest Pain Abdominal/Gastrointestinal: No Symptoms Genitourinary Symptoms: No Symptoms Musculoskeletal: No Symptoms Skin: No Symptoms Neurological: No Symptoms Psychological: No Symptoms Endocrine: No Symptoms Hematologic/Lymphatic: No Symptoms Immunological/Allergic: No Symptoms All Other Systems: Reviewed and Negative <MARLIN IBARRAMUNDO Amada - Last Filed: 03/27/20 18:58> - Past Medical History Pertinent Past Medical History: Yes Neurological History: No Pertinent History ENT History: No Pertinent History Cardiac History: No Pertinent History Respiratory History: Asthma Endocrine Medical History: No Pertinent History Musculoskeletal History: No Pertinent History GI Medical History: Other History: No Pertinent History Psycho-Social History: Depression Female Reproductive Disorders: No Pertinent History Other Medical History: gastroparesis - Past Surgical History Past Surgical History: No Neuro Surgical History: No Pertinent History Cardiac: No Pertinent History Respiratory: No Pertinent History Gastrointestinal: No Pertinent History Genitourinary: No Pertinent History Musculoskeletal: No Pertinent History Female Surgical History: No Pertinent History Other Surgical History: laprscopy to clean out fallopian tubes - Social History Smoking Status: Current every day smoker How long have you smoked: 6 months Exposure to second hand smoke: Yes Drug Use: marijuana Patient Lives Alone: No <MARLIN IBARRAMUNDO Amada - Last Filed: 03/27/20 18:58> - Physical Exam General Appearance: no apparent distress, alert, anxiety Eye Exam: PERRL/EOMI, eyes nml inspection Ears, Nose, Throat Exam: normal ENT inspection, moist mucous membranes Neck Exam: normal inspection, non-tender, supple, full range of motion Respiratory Exam: normal breath sounds, chest tenderness (With inspiration), lungs clear, airway intact, No respiratory distress Cardiovascular Exam: tachycardia Gastrointestinal/Abdomen Exam: soft, normal bowel sounds, No tenderness Pelvic Exam: not done Rectal Exam: not done Back Exam: normal inspection, normal range of motion, No CVA tenderness, No vertebral tenderness Extremity Exam: normal inspection, normal range of motion, pelvis stable Neurologic Exam: alert, oriented x 3, cooperative, scoop filler II-XII nml as tested Skin Exam: normal color, warm, dry Lymphatic Exam: No adenopathy SpO2 Interpretation: normal O2 Delivery: Room Air <SONYA IBARRA - Last Filed: 03/27/20 18:58> - Nursing Vital Signs Nursing Vital Signs: Initial Vital Signs Pulse Rate 106 H 03/27/20 17:47 Respiratory Rate 18 03/27/20 17:47 Blood Pressure 141/87 03/27/20 17:47 O2 Sat by Pulse Oximetry 99 03/27/20 17:47 Pain Scale Pain Intensity 5 - Course Nursing assessment & vital signs reviewed: Yes EKG Interpreted by Me: RATE (87), Sinus Rhythm, NORMAL AXIS, NORMAL INTERVALS, NORMAL QRS, NORMAL ST-T, Other (Comparison EKG is on 03/04/2020. Today's EKG there is resolution of the sinus tachycardia. The border T abnormalities ant erior leads is persistent. There are no acute ischemic changes on either EKG.) <SONYA IBARRA - Last Filed: 03/27/20 18:58> - Radiology Exams Chest X-ray Interpretation: Interpreted by me (Lungs are clear. Heart bony thorax are within normal limits. The x-ray shows what appears to be foreign body in her airway this is actually a cross on her necklace.) <BELA RÍOS - Last Filed: 03/27/20 19:57> Ordered Tests: Active Orders 24 hr Category Date Time Status Medication Aid STAT Care 03/27/20 18:14 Active EKG-ER Only STAT Care 03/27/20 18:13 Active IV Insertion STAT Care 03/27/20 18:13 Active Isolation, Initiate & Maintain STAT Care 03/27/20 18:13 Active Pulse Oximetry (ED) STAT Care 03/27/20 18:13 Active CHEST 1 VIEW (PORTABLE) Stat Exams 03/27/20 18:14 Taken BLOOD CULTURE Stat Lab 03/27/20 18:38 Received CBC W DIFF Stat Lab 03/27/20 18:38 Completed CMP Stat Lab 03/27/20 18:38 Completed D-DIMER QUANTITATIVE Stat Lab 03/27/20 18:38 Received Ferritin Stat Lab 03/27/20 18:38 Completed HCG,QUALITATIVE URINE Stat Lab 03/27/20 18:21 Completed INFLUENZA A+B SAM Stat Lab 03/27/20 18:37 Completed LDH-LACTATE DEHYDROGENASE Stat Lab 03/27/20 18:38 Completed Lactic Acid Stat Lab 03/27/20 18:13 Completed [place] Screen Stat Lab 03/27/20 18:38 Received TROPONIN Q3H Lab 03/27/20 18:38 Completed TROPONIN Q3H Lab 03/27/20 21:15 Ordered TROPONIN Q3H Lab 03/28/20 00:15 Ordered TROPONIN Q3H Lab 03/28/20 03:15 Ordered TROPONIN Q3H Lab 03/28/20 06:15 Ordered Medication Summary Discontinued Medications Generic Name Dose Route Start Last Admin Trade Name Freq PRN Reason Stop Dose Admin Dexamethasone Sodium Phosphate 8 mg 03/27/20 18:15 03/27/20 18:28 Decadron 4 Mg Inj IV 03/27/20 18:16 8 mg STAT ONE Administration Dexamethasone Sodium Phosphate Confirm 03/27/20 18:27 Decadron 4 Mg Inj Administered 03/27/20 18:28 Dose 8 mg .ROUTE .[employer] ONE Lab/Rad Data: Laboratory Result Diagrams 03/27/20 18:38 03/27/20 18:38 Laboratory Results 03/27/20 03/27/20 03/27/20 Range/Units 18:38 18:38 18:38 WBC (4.0-10.5) K/mm3 RBC (4.1-5.4) M/mm3 Hgb (12.0-16.0) gm/dl Hct (35-47) % MCV (78-100) fl MCH (26-32) pg MCHC (32-36) g/dl RDW (11.5-14.0) % Plt Count (150-450) K/mm3 MPV (7.5-11.0) fl Gran % (36.0-66.0) % Eos # (Auto) (0-0.5) Absolute Lymphs (auto) (1.0-4.6) Absolute Monos (auto) (0.0-1.3) Lymphocytes % (24.0-44.0) % Monocytes % (0.0-12.0) % Eosinophils % (0.00-5.0) % Basophils % (0.0-0.4) % Absolute Granulocytes (1.4-6.9) Basophils # (0-0.4) Sodium 136 L (137-145) mmol/L Potassium 3.7 (3.5-5.1) mmol/L Chloride 103 (98-107) mmol/L Carbon Dioxide 27 (22-30) mmol/L Anion Gap 10.5 (5-15) MEQ/L BUN 10 (7-17) mg/dL Creatinine 0.54 (0.52-1.04) mg/dL Estimated GFR > 60.0 ML/MIN Glucose 97 (74-106) mg/dL Lactic Acid (0.4-2.0) Calcium 9.8 (8.4-10.2) mg/dL Ferritin 8.21 (6.24-137) ng/mL Total Bilirubin 0.40 (0.2-1.3) mg/dL AST 23 (14-36) U/L ALT 15 (0-35) U/L Alkaline Phosphatase 50 (38-126) U/L Lactate Dehydrogenase 138 (120-246) U/L Troponin I < 0.012 (0.000-0.034) ng/mL Serum Total Protein 7.9 (6.3-8.2) g/dL Albumin 4.7 (3.5-5.0) g/dL Urine HCG, Qual (Negative) Influenza Type A Ag (NEGATIVE) Influenza Type B Ag (NEGATIVE) Group A Strep Antibody (NEGATIVE) 03/27/20 03/27/20 03/27/20 Range/Units 18:38 18:37 18:37 WBC 10.5 (4.0-10.5) K/mm3 RBC 4.68 (4.1-5.4) M/mm3 Hgb 12.5 (12.0-16.0) gm/dl Hct 38.7 (35-47) % MCV 82.7 (78-100) fl MCH 26.7 (26-32) pg MCHC 32.3 (32-36) g/dl RDW 14.2 H (11.5-14.0) % Plt Count 278 (150-450) K/mm3 MPV 10.8 (7.5-11.0) fl Gran % 74.3 H (36.0-66.0) % Eos # (Auto) 0.07 (0-0.5) Absolute Lymphs (auto) 2.04 (1.0-4.6) Absolute Monos (auto) 0.56 (0.0-1.3) Lymphocytes % 19.5 L (24.0-44.0) % Monocytes % 5.3 (0.0-12.0) % Eosinophils % 0.7 (0.00-5.0) % Basophils % 0.2 (0.0-0.4) % Absolute Granulocytes 7.79 H (1.4-6.9) Basophils # 0.02 (0-0.4) Sodium (137-145) mmol/L Potassium (3.5-5.1) mmol/L Chloride (98-107) mmol/L Carbon Dioxide (22-30) mmol/L Anion Gap (5-15) MEQ/L BUN (7-17) mg/dL Creatinine (0.52-1.04) mg/dL Estimated GFR ML/MIN Glucose (74-106) mg/dL Lactic Acid (0.4-2.0) Calcium (8.4-10.2) mg/dL Ferritin (6.24-137) ng/mL Total Bilirubin (0.2-1.3) mg/dL AST (14-36) U/L ALT (0-35) U/L Alkaline Phosphatase (38-126) U/L Lactate Dehydrogenase (120-246) U/L Troponin I (0.000-0.034) ng/mL Serum Total Protein (6.3-8.2) g/dL Albumin (3.5-5.0) g/dL Urine HCG, Qual (Negative) Influenza Type A Ag NEGATIVE (NEGATIVE) Influenza Type B Ag NEGATIVE (NEGATIVE) Group A Strep Antibody NOT DETECTED (NEGATIVE) 03/27/20 03/27/20 Range/Units 18:21 18:13 WBC (4.0-10.5) K/mm3 RBC (4.1-5.4) M/mm3 Hgb (12.0-16.0) gm/dl Hct (35-47) % MCV (78-100) fl MCH (26-32) pg MCHC (32-36) g/dl RDW (11.5-14.0) % Plt Count (150-450) K/mm3 MPV (7.5-11.0) fl Gran % (36.0-66.0) % Eos # (Auto) (0-0.5) Absolute Lymphs (auto) (1.0-4.6) Absolute Monos (auto) (0.0-1.3) Lymphocytes % (24.0-44.0) % Monocytes % (0.0-12.0) % Eosinophils % (0.00-5.0) % Basophils % (0.0-0.4) % Absolute Granulocytes (1.4-6.9) Basophils # (0-0.4) Sodium (137-145) mmol/L Potassium (3.5-5.1) mmol/L Chloride (98-107) mmol/L Carbon Dioxide (22-30) mmol/L Anion Gap (5-15) MEQ/L BUN (7-17) mg/dL Creatinine (0.52-1.04) mg/dL Estimated GFR ML/MIN Glucose (74-106) mg/dL Lactic Acid 1.9 (0.4-2.0) Calcium (8.4-10.2) mg/dL Ferritin (6.24-137) ng/mL Total Bilirubin (0.2-1.3) mg/dL AST (14-36) U/L ALT (0-35) U/L Alkaline Phosphatase (38-126) U/L Lactate Dehydrogenase (120-246) U/L Troponin I (0.000-0.034) ng/mL Serum Total Protein (6.3-8.2) g/dL Albumin (3.5-5.0) g/dL Urine HCG, Qual NEGATIVE (Negative) Influenza Type A Ag (NEGATIVE) Influenza Type B Ag (NEGATIVE) Group A Strep Antibody (NEGATIVE) - Progress Progress: improved, pain not gone completely Counseled pt/family regarding: lab results, diagnosis, need for follow-up, rad results <SONYA IBARRA - Last Filed: 03/27/20 18:58> <BELA RÍOS - Last Filed: 03/27/20 19:57> - Progress Progress Note: 03/27/20 18:59 I am signing out at shift change to Dr. Bela Ríos. I have reviewed the patient history, condition and pending studies to be followed up on. He will make the patient's final disposition. (SONYA IBARRA) Patient endorsed to Dr. Ríos at approximately 7 PM. Patient reassessed. Labs are essentially nonremarkable for the purposes of this emergency room visit. Chest x-ray is negative. Patient ambulated throughout our ED. Her vitals remained normal. O2 saturation with exertion remained in the high 90s. Patient states she is ready for discharge. No indication for further work-up at this time will discharge home. Patient agrees to follow-up with her primary care doctor within 48 hours. 03/27/20 19:56 (BELA RÍOS) - Departure Departure Disposition: Home Critical Care Time: No <SONYA IBARRA - Last Filed: 03/27/20 18:58> <BELA RÍOS - Last Filed: 03/27/20 19:57> - Departure Clinical Impression: Shortness of breath, Cough Condition: Stable Referrals: BEBE CALVIN [Primary Care Provider] -
[2020-03-27] MEDS ORDERED: Decadron 4 MG INJ IV ONE (18:15)
[2020-03-27] MEDS ORDERED: Decadron 4 MG INJ ONE (18:27)
[2020-03-27 18:44] LABS: Absolute Neutrophil Ct (ANC) 7.79 (1.4-6.9); BASOPHIL % 0.2 % (0.0-0.4); Basophil (Absolute #) 0.02 (0-0.4); Eosinophil % 0.7 % (0.00-5.0); Eosinophil (Absolute #) 0.07 (0-0.5); Hematocrit 38.7 % (35-47); Hemoglobin 12.5 gm/dl (12.0-16.0); Lymphocyte (Absolute #) 2.04 (1.0-4.6); Lymphocytes % 19.5 % (24.0-44.0); Mean Cell Volume 82.7 fl (78-100); Mean Corpuscular Hemoglobin 26.7 pg (26-32); Mean Corpuscular Hgb Concent. 32.3 g/dl (32-36); Mean Platelet Volume 10.8 fl (7.5-11.0); Monocyte (Absolute #) 0.56 (0.0-1.3); Monocytes % 5.3 % (0.0-12.0); Neutrophil % 74.3 % (36.0-66.0); Platelet Count 278 K/mm3 (150-450); Red Blood Count 4.68 M/mm3 (4.1-5.4); Red Cell Distribution Width 14.2 % (11.5-14.0); White Blood Count 10.5 K/mm3 (4.0-10.5)
[2020-03-27 19:00] LABS: ALBUMIN 4.7 g/dL (3.5-5.0); ALKALINE PHOSPHATASE 50 U/L (38-126); ANION GAP 10.5 MEQ/L (5-15); BLOOD UREA NITROGEN 10 mg/dL (7-17); CHLORIDE 103 mmol/L (98-107); Calcium 9.8 mg/dL (8.4-10.2); Carbon Dioxide 27 mmol/L (22-30); Creatinine 1 0.54 mg/dL (0.52-1.04); EST GLOMERULAR FILTRATION RATE > 60.0 ML/MIN; Glucose 97 mg/dL (74-106); LDH-LACTATE DEHYDROGENASE 138 U/L (120-246); Potassium 3.7 mmol/L (3.5-5.1); SGOT/AST 23 U/L (14-36); SGPT/ALT 15 U/L (0-35); SODIUM 136 mmol/L (137-145); Total Protein 7.9 g/dL (6.3-8.2)
[2020-03-27 19:14] LABS: INFLUENZA A NEGATIVE (NEGATIVE); INFLUENZA B NEGATIVE (NEGATIVE)
[2020-03-27 20:08] VITALS: BP 128/66; PULSE 92; O2SAT 98
--- NOTE | 2020-03-28 08:47 | XRAY ---
Indication: Short of breath and cough. Recent positive Covid 19. Comparison: March 04, 2020. Portable chest again demonstrates normal heart, lungs, and bony thorax.
== END 2020-03-27 20:08 | disposition home or self-care (01) ==
LOC: ED 17:38
DX: R06.02 Shortness of breath (principal); R05 Cough; R07.89 Other chest pain; Z86.16 Personal history of COVID-19; Z79.899 Other long term (current) drug therapy
CPT/HCPCS: 36000; 36415; 71045; 80053; 82728; 83605; 83615; 84484; 84703; 85025; 85379; 86308; 87040; 87400; 87651; 93005; 93041; 94760; 96374; 99284; J1100

== ENCOUNTER 2020-07-06 16:23 | Emergency (ER) | payer MEDICAID ==
[2020-07-06 16:47] VITALS: O2SAT 100
[2020-07-06] MEDS ORDERED: TORAdol 30 mg Injection IM ONE (17:03)
[2020-07-06] MEDS ORDERED: TORAdol 30 mg Injection ONE (17:10)
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
[2020-07-06 18:25] VITALS: BP 147/86; PULSE 98
== END 2020-07-06 18:37 | disposition home or self-care (01) ==
LOC: ED 16:23
DX: F07.81 Postconcussional syndrome (principal)
CPT/HCPCS: 96372; 99283; J1885